=== PATIENT | female | born 1965 | race Caucasian/White ===

== ENCOUNTER 2019-07-23 09:56 | Outpatient (CLI) | payer MEDICARE ==
[2019-07-23 12:18] LABS: BASOPHILS # (AUTO) 0.03 x10^3/uL (0-0.1); BASOPHILS % (AUTO) 0 % (0-1); EOSINOPHILS % (AUTO) 1 % (1-7); LYMPHOCYTES # (AUTO) 1.85 x10^3/uL (1-3.4); LYMPHOCYTES % (AUTO) 25 % (22-44); MD NO; MEAN CORPUSCULAR HEMOGLOBIN 28.9 pg (27.0-34.8); MEAN CORPUSCULAR HGB CONC 32.9 g/dL (32.4-35.8); MEAN PLATELET VOLUME 8.2 fL (7.4-10.4); MONOCYTES # (AUTO) 0.47 x10^3/uL (0.2-0.8); MONOCYTES % (AUTO) 6 % (2-9); NEUTROPHILS # (AUTO) 4.96 x10^3/uL (1.8-6.8); NEUTROPHILS % (AUTO) 67 % (42-75); PLATELET COUNT 282 x10^3/uL (130-400); RED BLOOD COUNT 4.98 x10^6/uL (3.82-5.3); RED CELL DISTRIBUTION WIDTH 14.3 % (9.6-15.2)
[2019-07-23 12:22] LABS: CHLORIDE 109 mmol/L (98-107)
[2019-07-23 12:31] LABS: ALANINE AMINOTRANSFERASE 26 U/L (12-78); ALBUMIN 3.7 g/dL (3.4-5.0); ALKALINE PHOSPHATASE 170 U/L (45-117); ANION GAP 8 mmol/L (5-15); BILIRUBIN,TOTAL 0.3 mg/dL (0.2-1.0); CALCIUM 8.7 mg/dL (8.5-10.1); TOTAL PROTEIN 7.7 g/dL (6.4-8.2)
[2019-07-23] MEDS ORDERED: GABA300C PO (14:39)
[2019-07-23] MEDS ORDERED: ESZO3TAB28 PO (14:39)
[2019-07-23] MEDS ORDERED: TOPI25TA8 PO (14:39)
[2019-07-23] MEDS ORDERED: DULO30CA2 PO (14:39)
[2019-07-23] MEDS ORDERED: LEVO75TA5 PO (14:39)
[2019-07-30] MEDS ORDERED: CELE200C PO (11:04)
== END 2019-07-23 23:59 | disposition home or self-care (01) ==
LOC: STAR 09:56
PROVIDERS: ATTEND Surgery
DX: Z01.818 Encounter for other preprocedural examination (principal); R94.31 Abnormal electrocardiogram [ECG] [EKG]
CPT/HCPCS: 36415; 71046; 80053; 85025; 93005